=== PATIENT | female | born 1965 | race Caucasian/White ===

== ENCOUNTER 2018-05-10 08:41 | Day surgery (SDC) | payer BC ==
[~2018-05-10 08:41] MED LIST: Lactated Ringers 1,000 ML IV SCH
[2018-05-10] MEDS ORDERED: Simethicone Drops 40 MG/0.6 ML 30 ML Bottle ONE (09:27)
[2018-05-10] MEDS ORDERED: fentaNYL 100 MCG/2 ML SDV ONE (10:44)
[2018-05-10] MEDS ORDERED: Propofol 200 MG/20 ML SDV ONE ×2 (10:44→10:59)
[2018-05-10 11:48] VITALS: BP 147/85
--- NOTE | 2018-05-10 11:59 | OR ---
PREOPERATIVE DIAGNOSIS: History of colon polyps. POSTOPERATIVE DIAGNOSIS: History of colon polyps. PROCEDURE PERFORMED: Colonoscopy. INDICATION: The patient is a 53-year-old female with history of colon polyps on her last colonoscopy, presents for colonoscopy at this time. PROCEDURE IN DETAIL: Procedure was done in the endoscopy suite. Sedation was given per Anesthesia. She was placed in left lateral position. First, a rectal exam was done, was normal. Scope was introduced into the rectum, slowly advanced to the rectum, sigmoid, descending, transverse, and ascending colon until the cecum was reached. Upon reaching the cecum, scope was slowly withdrawn looking all mucosal surfaces on the way out. No mucosal abnormalities, lesions, or polyps were noted. She did have some scattered sigmoid diverticulosis. FINAL DIAGNOSIS: Sigmoid diverticulosis, otherwise normal colonoscopy. BKD: 05/10/2018 11:23:54 MODL: 05/10/2018 11:49:26 /[id number]
== END 2018-05-10 12:10 | disposition home or self-care (01) ==
LOC: VM.SDS 08:41
PROVIDERS: ATTEND Surgery
DX: Z12.11 Encounter for screening for malignant neoplasm of colon (principal); K57.30 Diverticulosis of large intestine without perforation or abscess without bleeding; J45.30 Mild persistent asthma, uncomplicated; F17.210 Nicotine dependence, cigarettes, uncomplicated; Z86.010 Personal history of colon polyps; Z79.51 Long term (current) use of inhaled steroids; Z79.899 Other long term (current) drug therapy; Z88.1 Allergy status to other antibiotic agents
CPT/HCPCS: J2704; J3010; J7120